=== PATIENT | male | born 1990 | race Caucasian/White ===

== ENCOUNTER 2017-03-20 16:39 | Emergency (ER) | payer OTHER ==
[~2017-03-20] VITALS: Ht 177.8 cm; Wt 83.9 kg
[~2017-03-20 16:39] MED LIST: AMOXICILLIN 50500 M1 PO; BACTRIM DS TAB1 EACH PO; HYDROCODONE-ACE15 ML PO; IBUPROFEN 600600 M1 PO; MEDROLDOSEPACK PO; MULTI-VITAMIN1 EAC5; NOHOMEMEDICATIONS; NORCO 5-325 TA1 EACH PO; PERCOCET 5-3251 EACH PO; TRAMADOL 50 MG50 MG PO; UNICOMPLEX M TA1 TA1 PO; VALIUM5 MG PO
[2017-03-20 16:40] VITALS: BP 132/65
[2017-03-20] MEDS ORDERED: VALIUM2 MG PO (17:44)
[2017-03-20] MEDS ORDERED: HYDROCODONE-AP1 EAC6 PO (17:44)
[2017-03-20] MEDS ORDERED: MOBIC15 MG PO (17:44)
== END 2017-03-20 18:06 | disposition home or self-care (01) ==
LOC: ER 16:39
DX: M54.42 Lumbago with sciatica, left side (principal); F41.9 Anxiety disorder, unspecified; F17.210 Nicotine dependence, cigarettes, uncomplicated; Z86.14 Personal history of Methicillin resistant Staphylococcus aureus infection

== ENCOUNTER 2017-04-25 10:13 | Emergency (ER) | payer OTHER ==
[~2017-04-25] VITALS: Ht 188 cm; Wt 106.6 kg
[2017-04-25 10:13] VITALS: BP 124/76
[~2017-04-25 10:13] MED LIST changes: +HYDROCODONE-AP1 EAC6 PO; +MOBIC15 MG PO; +VALIUM2 MG PO
[2017-04-25] MEDS ORDERED: NORCO 5-325 TA1 EACH PO (10:57)
[2017-04-25] MEDS ORDERED: PREDNISONE 20 M20 MG PO (10:57)
[2017-04-25] MEDS ORDERED: IBUPROFEN 600600 M1 PO (10:57)
[2017-04-25] MEDS ORDERED: FLEXERIL PO (10:57)
== END 2017-04-25 11:05 | disposition home or self-care (01) ==
LOC: ER 10:13
DX: M54.16 Radiculopathy, lumbar region (principal); F41.9 Anxiety disorder, unspecified; F17.210 Nicotine dependence, cigarettes, uncomplicated; Z86.14 Personal history of Methicillin resistant Staphylococcus aureus infection